=== PATIENT | female | born 1960 | race Caucasian/White ===

== ENCOUNTER 2020-11-22 09:59 | Emergency (ER) | payer OTHER ==
[~2020-11-22] VITALS: Ht 165.1 cm; Wt 69.0 kg
[2020-11-22] MEDS ORDERED: ERGO50000 PO (10:11)
[2020-11-22] MEDS ORDERED: FOLI1 PO (10:11)
[2020-11-22] MEDS ORDERED: BUTALB-ACETAMI1 EAC7 PO (10:12)
[2020-11-22] MEDS ORDERED: ALPR.25 PO (10:12)
[2020-11-22] MEDS ORDERED: ATOR10 PO (10:12)
[2020-11-22] MEDS ORDERED: Norco 5-325 Ta1 EACH PO (11:20)
[2020-11-22] MEDS ORDERED: ONDA4ODT MM (11:21)
== END 2020-11-22 11:38 | disposition home or self-care (01) ==
LOC: ER 09:59
DX: M54.5 Low back pain (principal); G89.29 Other chronic pain; Z88.5 Allergy status to narcotic agent
CPT/HCPCS: 99283